=== PATIENT | female | born 1940 | race Caucasian/White ===

== ENCOUNTER 2021-02-28 06:06 | Day surgery (SDC) | payer MEDICARE ==
[2021-02-27 15:42] LABS: BASOPHILS # (AUTO) 0.1 X10'3 (0-0.2); BASOPHILS % (AUTO) 0.8 % (0-1); EOSINOPHILS # (AUTO) 0.5 X10'3 (0-0.9); EOSINOPHILS % (AUTO) 7.5 % (0-6); HEMATOCRIT 41.4 % (35.0-45.0); HEMOGLOBIN 13.9 g/dl (12.0-16.0); LYMPHOCYTES # (AUTO) 1.6 X10'3 (1.1-4.8); LYMPHOCYTES % (AUTO) 24.4 % (21-51); MEAN CORPUSCULAR HEMOGLOBIN 31.6 PG (27.0-31.0); MEAN CORPUSCULAR HGB CONC 33.6 g/dL (33.0-36.5); MEAN CORPUSCULAR VOLUME 93.9 FL (78-98); MEAN PLATELET VOLUME 8.2 FL (7.4-10.4); MONOCYTES # (AUTO) 0.5 X10'3 (0-0.9); MONOCYTES % (AUTO) 7.7 % (2-12); NEUTROPHILS % (AUTO) 59.6 % (42-75); PLATELET COUNT 215 X10'3 (140-440); RED BLOOD COUNT 4.41 X10'6 (4.20-5.60); RED CELL DISTRIBUTION WIDTH 14.1 % (11.5-14.5); WHITE BLOOD COUNT 6.7 X10'3 (4.5-11.0)
[2021-02-27 15:50] LABS: PARTIAL THROMBOPLASTIN TIME 23 SECONDS (22-32)
[2021-02-27 15:51] LABS: ALBUMIN 3.7 G/DL (3.4-5.0); ANION GAP 11 (8-16); BLOOD UREA NITROGEN 20 MG/DL (7-18); BUN/CREATININE RATIO 20.2 (6.6-38.0); CALCIUM 8.8 MG/DL (8.5-10.1); CHLORIDE 106 MMOL/L (99-107); CREATININE 0.99 MG/DL (0.40-0.90); POTASSIUM 4.1 MMOL/L (3.5-5.1); SODIUM 144 MMOL/L (135-145); TOTAL CARBON DIOXIDE 27.2 MMOL/L (24-32); eGFR 54 ML/MIN
[2021-02-27 15:53] LABS: GLUCOSE 127 MG/DL (70-104)
[2021-02-28] VITALS (11 sets, daily range): BP systolic 120–163; BP diastolic 53–73
[~2021-02-28] VITALS: Ht 165.1 cm; Wt 75.4 kg
[~2021-02-28 06:06] MED LIST: ASPI-1071 PO; SOTA80TA73 PO
[2021-02-28] MEDS ORDERED: normal saline 1000ml 1,000 ML IV SCH (06:20)
[2021-02-28] MEDS ORDERED: cefazolin/dext.iso 2gm/50ml 50 ML IV ONE (06:25)
[2021-02-28] MEDS ORDERED: AMLO5TAB16 PO (06:34)
[2021-02-28] MEDS ORDERED: SOTA80TA46 PO (06:37)
[2021-02-28] MEDS ORDERED: ROSU10TA28 PO (06:37)
[2021-02-28] MEDS ORDERED: CLON0.1T2 PO (06:37)
[2021-02-28] MEDS ORDERED: HYDR12.55 PO (06:37)
[2021-02-28] MEDS ORDERED: BIOTIN (06:38)
[2021-02-28] MEDS ORDERED: MAGNESIUM (06:38)
[2021-02-28] MEDS ORDERED: RED YEAST RICE (06:38)
[2021-02-28] MEDS ORDERED: RED600CA2 (06:57)
[2021-02-28] MEDS ORDERED: LIDOCAINE 1%/EPI 1:100,000 inj. 10 ML multi-dose vial ONE ×2 (07:30→08:54)
[2021-02-28] MEDS ORDERED: midazolam 1 mg/ML 2ml injection ONE ×2 (07:35→08:52)
[2021-02-28] MEDS ORDERED: ceFAZolin 1000mg inj ONE (07:35)
[2021-02-28] MEDS ORDERED: fentaNYL/PF 50MCG/1 ML 2ML syringe ONE ×2 (07:35→09:00)
[2021-02-28] MEDS ORDERED: normal saline 1000ml 1,000 ML IV ONE (10:05)
[2021-02-28] MEDS ORDERED: vancomycin/NS 1 GM ADD-VANTAGE 250 ML IV ONE (11:00)
[2021-02-28] MEDS ORDERED: HYDROcodone/acetaminophen 10/325mg tab PO PRN (12:35)
[2021-02-28] MEDS ORDERED: HYDROcodone/acetaminophen 5mg/325mg tablet PO PRN (12:35)
== END 2021-02-28 14:05 | disposition home or self-care (01) ==
LOC: SSTAY O 06:06
PROVIDERS: ATTEND Internal Medicine Cardiovascular Disease
DX: I49.5 Sick sinus syndrome (principal); I48.92 Unspecified atrial flutter; I10 Essential (primary) hypertension; E78.5 Hyperlipidemia, unspecified; E66.3 Overweight; Z68.27 Body mass index [BMI] 27.0-27.9, adult; Z79.899 Other long term (current) drug therapy; Z79.01 Long term (current) use of anticoagulants; Z96.659 Presence of unspecified artificial knee joint; Z98.890 Other specified postprocedural states; Z87.891 Personal history of nicotine dependence; Z72.89 Other problems related to lifestyle; Z88.0 Allergy status to penicillin; Z88.2 Allergy status to sulfonamides
CPT/HCPCS: 33208; 36415; 71046; 80048; 85025; 85610; 85730; 93005; 99152; 99153; C1785; C1894; C1898; J0690; J2250; J3010; J3370; J7030; A4565; A4620; A6258; A6449

== ENCOUNTER 2024-03-08 17:11 | Emergency (ER) | payer MEDICARE ==
[~2024-03-08 17:11] MED LIST changes: +AMLO5TAB16 PO; +BIOTIN; +CLON0.1T2 PO; +HYDR12.55 PO; +MAGNESIUM; +RED600CA2; +ROSU10TA72 PO; +SOTA80TA46 PO; -SOTA80TA73 PO
== END 2024-03-08 18:06 | disposition left against medical advice (07) ==
LOC: ER 17:12
DX: S81.819A Laceration without foreign body, unspecified lower leg, initial encounter (principal); Z53.21 Procedure and treatment not carried out due to patient leaving prior to being seen by health care provider; X58.XXXA Exposure to other specified factors, initial encounter; Y93.89 Activity, other specified; Y92.89 Other specified places as the place of occurrence of the external cause; Y99.8 Other external cause status